=== PATIENT | male | born 1950 | race Hispanic/Latino ===

== ENCOUNTER 2023-08-23 10:01 | Emergency (ER) | payer OTHER ==
[2023-08-23] MEDS ORDERED: Methocarbamol 500 MG TAB ONE (10:29)
[2023-08-23] MEDS ORDERED: Ketorolac Tromethamine 30 MG (1 mL) VIAL ONE (10:29)
== END 2023-08-23 12:20 | disposition home or self-care (01) ==
LOC: ERS 10:01
DX: S39.012A Strain of muscle, fascia and tendon of lower back, initial encounter (principal); E11.9 Type 2 diabetes mellitus without complications; W18.12XA Fall from or off toilet with subsequent striking against object, initial encounter; Z75.8 Other problems related to medical facilities and other health care
CPT/HCPCS: 72100; 96372; J1885